=== PATIENT | female | born 1980 | race Caucasian/White ===

== ENCOUNTER 2024-03-18 09:43 | Inpatient (IN) | payer OTHER ==
[~2024-03-18] VITALS: Ht 167.6 cm; Wt 89.8 kg
[2024-03-18 10:09] VITALS: BP_SYST 145; PULSE 90; RESP 18; TEMP 97.9; O2SAT 98
[2024-03-18] MEDS: DIPHTH,PERTUSS(ACELL),TET VAC 0.5 ML VIAL (Tdap) I.M. ONE (10:45)
[2024-03-18 11:07] LABS: BASOPHILS # (AUTO) 0.1 K/uL (0.0-0.2); EOSINOPHILS # (AUTO) 0.1 K/uL (0.0-0.4); EOSINOPHILS % (AUTO) 0.6 % (0.0-4.0); HEMATOCRIT 38.4 % (36-48); HEMOGLOBIN 12.5 g/dL (12.0-16.0); LYMPHOCYTES # (AUTO) 2.2 K/uL (1.0-5.5); MEAN CORPUSCULAR HEMOGLOBIN 24 pg (27-31); MEAN CORPUSCULAR HGB CONC 32 % (32-36); MEAN CORPUSCULAR VOLUME 75 fL (79.0-98.0); MONOCYTES # (AUTO) 0.8 K/uL (0.0-1.0); MONOCYTES % (AUTO) 6.7 % (1.7-9.3); NEUTROPHILS # (AUTO) 8.5 K/uL (1.8-7.7); NEUTROPHILS % (AUTO) 72.7 % (40.0-70.0); PLATELET COUNT (AUTO) 350 K/uL (130-430); RED BLOOD CELL COUNT(AUTO) 5.12 MIL/uL (4.2-6.2); RED CELL DISTRIBUTION WIDTH 19.4 % (9.0-15.0); WHITE BLOOD COUNT (AUTO) 11.7 K/uL (4.8-10.8)
[2024-03-18 11:20] LABS: CALCIUM 8.8 mg/dL (8.4-11.0); CREATININE 0.81 mg/dL (0.55-1.30)
[2024-03-18] MEDS: NACL 0.9% 2,000 ML IV ONE (11:26)
[2024-03-18 11:35] LABS: POTASSIUM 3.9 mmol/L (3.5-5.1)
[2024-03-18] MEDS ORDERED: PIPERACILLIN/TAZOBACTAM 3.375 GM/VIAL (ZOSYN) IV ONE (11:36)
[2024-03-18] MEDS: PIPERACILLIN/TAZO 3.375 GM in NS 50 ML IV ONE (11:37)
[2024-03-18 12:15] LABS: BLOOD, URINE 3+ (NEGATIVE); COLOR,URINE YELLOW (YELLOW); GLUCOSE,URINE 3+ (NEGATIVE); KETONES,URINE 3+ (NEGATIVE); LEUKOCYTE ESTERASE ,URINE NEGATIVE (NEGATIVE); NITRITE, URINE NEGATIVE (NEGATIVE); PROTEIN URINE TRACE (NEGATIVE)
[2024-03-18 12:23] LABS: CLARITY/URINE HAZY (CLEAR)
[2024-03-18 12:31] LABS: BILIRUBIN,URINE NEGATIVE (NEGATIVE); RBC,URINE >100 /HPF (0-3)
[2024-03-18 12:32] LABS: BACTERIA,URINE MODERATE /HPF (None Seen); MUCUS,URINE 1+ /LPF (None Seen)
[2024-03-18] MEDS ORDERED: 0.45% NACL 1,000 ML IV ONE (14:15)
[2024-03-18 21:14] VITALS: BP_SYST 135; PULSE 102; RESP 18; O2SAT 97
[2024-03-18 21:15] VITALS: BP_SYST 135; PULSE 102; RESP 18
[2024-03-18 21:26] VITALS: O2SAT 98
[2024-03-18] MEDS: HYDROcodone/ACETAMIN 5-325 MG TAB (NORCO/ VICODIN) PO PRN (23:18)
[2024-03-19 00:30] VITALS: BP_SYST 127; PULSE 98; RESP 18; TEMP 97.8; O2SAT 98
[2024-03-19] MEDS: PIPERACILLIN/TAZO 3.375 GM in NS 50 ML IV ONE (00:45)
[2024-03-19] MEDS: VANCOMYCIN HCL 1,000 MG in NS 250 ML IV SCH (01:41)
[2024-03-19] MEDS: PIPERACILLIN/TAZOBACTAM 3.375 GM/VIAL (ZOSYN) IV ONE (01:43)
[2024-03-19] MEDS: VANCOMYCIN HCL 1000 MG/VIAL IV ONE (01:45)
[2024-03-19 06:00] VITALS: BP_SYST 120; PULSE 96; RESP 18; TEMP 97.5; O2SAT 98
[2024-03-19 08:09] LABS: BASOPHILS % (AUTO) 0.4 % (0.0-2.0); EOSINOPHILS # (AUTO) 0.2 K/uL (0.0-0.4); HEMATOCRIT 34.5 % (36-48); HEMOGLOBIN 11.1 g/dL (12.0-16.0); LYMPHOCYTES # (AUTO) 2.1 K/uL (1.0-5.5); LYMPHOCYTES % (AUTO) 22.8 % (20.5-51.5); MEAN CORPUSCULAR HEMOGLOBIN 24 pg (27-31); MEAN CORPUSCULAR HGB CONC 32 % (32-36); MEAN CORPUSCULAR VOLUME 75 fL (79.0-98.0); MONOCYTES # (AUTO) 0.7 K/uL (0.0-1.0); MONOCYTES % (AUTO) 8.1 % (1.7-9.3); NEUTROPHILS % (AUTO) 66.7 % (40.0-70.0); PLATELET COUNT (AUTO) 344 K/uL (130-430); RED BLOOD CELL COUNT(AUTO) 4.61 MIL/uL (4.2-6.2); RED CELL DISTRIBUTION WIDTH 19.2 % (9.0-15.0); WHITE BLOOD COUNT (AUTO) 9.1 K/uL (4.8-10.8)
[2024-03-19 08:25] LABS: CREATININE 0.52 mg/dL (0.55-1.30); POTASSIUM 3.6 mmol/L (3.5-5.1)
[2024-03-19 10:00] VITALS: O2SAT 96
[2024-03-19 12:05] VITALS: BP_SYST 122; PULSE 100; RESP 17; TEMP 97.7; O2SAT 98
[2024-03-19] MEDS: PIPERACILLIN/TAZO 4.5 GM in D5W 100 ML IV SCH (15:09)
[2024-03-19 18:22] VITALS: BP_SYST 125; PULSE 104; RESP 16; TEMP 97.3; O2SAT 98
[2024-03-19 19:00] VITALS: BP_SYST 134; PULSE 100; RESP 18; TEMP 97; O2SAT 97; O2SAT 98
[2024-03-20] VITALS (7 sets, daily range): BP systolic 113–140; PULSE 95–105; RESP 15–20; TEMP 97.1–98.1; O2SAT 96–98
[2024-03-20 06:08] LABS: BASOPHILS # (AUTO) 0.1 K/uL (0.0-0.2); BASOPHILS % (AUTO) 0.7 % (0.0-2.0); EOSINOPHILS # (AUTO) 0.2 K/uL (0.0-0.4); EOSINOPHILS % (AUTO) 2.2 % (0.0-4.0); HEMATOCRIT 34.5 % (36-48); HEMOGLOBIN 11.2 g/dL (12.0-16.0); LYMPHOCYTES # (AUTO) 3.4 K/uL (1.0-5.5); LYMPHOCYTES % (AUTO) 36.9 % (20.5-51.5); MEAN CORPUSCULAR HEMOGLOBIN 24 pg (27-31); MEAN CORPUSCULAR HGB CONC 33 % (32-36); MEAN CORPUSCULAR VOLUME 75 fL (79.0-98.0); MONOCYTES # (AUTO) 0.9 K/uL (0.0-1.0); MONOCYTES % (AUTO) 9.7 % (1.7-9.3); NEUTROPHILS # (AUTO) 4.7 K/uL (1.8-7.7); NEUTROPHILS % (AUTO) 50.5 % (40.0-70.0); PLATELET COUNT (AUTO) 378 K/uL (130-430); RED BLOOD CELL COUNT(AUTO) 4.61 MIL/uL (4.2-6.2); RED CELL DISTRIBUTION WIDTH 18.7 % (9.0-15.0); WHITE BLOOD COUNT (AUTO) 9.3 K/uL (4.8-10.8)
[2024-03-20 06:29] LABS: CALCIUM 8.4 mg/dL (8.4-11.0); CREATININE 0.54 mg/dL (0.55-1.30); POTASSIUM 3.6 mmol/L (3.5-5.1)
[2024-03-20] MEDS ORDERED: L.RH1CAP PO (11:22)
[2024-03-20] MEDS ORDERED: AMOX-423 PO (11:22)
[2024-03-20] MEDS ORDERED: DOXY100C5 PO (11:22)
[2024-03-21 08:00] VITALS: BP_SYST 142; PULSE 110; RESP 16; TEMP 98.8; O2SAT 98
[2024-03-21] MEDS ORDERED: BUPIVACAINE /PF 0.5% 30 ML VIAL ONE (08:20)
[2024-03-21] MEDS ORDERED: NS IRRIG SOLN 1000 ML IR ONE (08:20)
[2024-03-21] MEDS ORDERED: WATER FOR IRRIGATION,STERILE 1,000 ML IRRIG.SOLN IR ONE (08:20)
[2024-03-21] MEDS ORDERED: SEVOFLURANE 15 MIN GAS INH ONE (08:20)
[2024-03-21] MEDS ORDERED: KETOROLAC TROMETHAMINE 30 MG VIAL ONE (08:20)
[2024-03-21] MEDS ORDERED: LR 1,000 ML IV.SOLN IV ONE (08:20)
[2024-03-21] MEDS ORDERED: fentaNYL CITRATE/PF 100 MCG/2 ML AMP ONE (08:20)
[2024-03-21] MEDS ORDERED: PROPOFOL 200MG/ 20ML VIAL (DIPRIVAN) IV ONE (08:20)
[2024-03-21] MEDS ORDERED: ONDANSETRON HCL 4 MG/2 ML VIAL ONE (08:20)
[2024-03-21] MEDS ORDERED: METOCLOPRAMIDE HCL 10 MG/2 ML VIAL ONE (08:20)
[2024-03-21] MEDS ORDERED: MIDAZOLAM HCL 2 MG/2 ML VIAL (VERSED) ONE (08:20)
[2024-03-21 09:00] VITALS: O2SAT 98
[2024-03-21] MEDS ORDERED: MORPHINE 4 MG INJ. 4 MG/ML VIAL IVP PRN (09:15)
[2024-03-21] MEDS: LR 1,000 ML IV SCH (09:30)
[2024-03-21] MEDS ORDERED: ONDANSETRON HCL 4 MG/2 ML VIAL IVP PRN (09:30)
[2024-03-21] MEDS ORDERED: HYDROmorphone 2 MG/ML VIAL IVP PRN (09:30)
[2024-03-21] MEDS ORDERED: HYDROmorphone 1 MG/ML INJ. CARTRIDGE IVP PRN (09:30)
[2024-03-21] MEDS ORDERED: KETOROLAC TROMETHAMINE 30 MG VIAL IVP PRN (09:30)
[2024-03-21 20:00] VITALS: BP_SYST 117; BP_SYST 134; PULSE 76; PULSE 98; RESP 18; RESP 20; TEMP 97.7; TEMP 98.8; O2SAT 96; O2SAT 98
[2024-03-21 21:01] VITALS: O2SAT 98
[2024-03-22] VITALS (7 sets, daily range): BP systolic 128–149; PULSE 50–96; RESP 15–20; TEMP 96.4–98.8; O2SAT 96–99
[2024-03-22 06:01] LABS: BASOPHILS # (AUTO) 0.1 K/uL (0.0-0.2); BASOPHILS % (AUTO) 0.8 % (0.0-2.0); EOSINOPHILS # (AUTO) 0.2 K/uL (0.0-0.4); EOSINOPHILS % (AUTO) 2.6 % (0.0-4.0); HEMATOCRIT 34.1 % (36-48); HEMOGLOBIN 11.3 g/dL (12.0-16.0); LYMPHOCYTES # (AUTO) 2.3 K/uL (1.0-5.5); LYMPHOCYTES % (AUTO) 35.3 % (20.5-51.5); MEAN CORPUSCULAR HEMOGLOBIN 25 pg (27-31); MEAN CORPUSCULAR HGB CONC 33 % (32-36); MEAN CORPUSCULAR VOLUME 74 fL (79.0-98.0); MONOCYTES # (AUTO) 0.7 K/uL (0.0-1.0); MONOCYTES % (AUTO) 10.1 % (1.7-9.3); NEUTROPHILS # (AUTO) 3.3 K/uL (1.8-7.7); NEUTROPHILS % (AUTO) 51.2 % (40.0-70.0); PLATELET COUNT (AUTO) 389 K/uL (130-430); RED BLOOD CELL COUNT(AUTO) 4.61 MIL/uL (4.2-6.2); RED CELL DISTRIBUTION WIDTH 18.8 % (9.0-15.0); WHITE BLOOD COUNT (AUTO) 6.5 K/uL (4.8-10.8)
[2024-03-22] MEDS: VANCOMYCIN HCL 1,000 MG in NS 250 ML IV SCH (16:26)
[2024-03-23 06:53] LABS: BASOPHILS % (AUTO) 0.7 % (0.0-2.0); EOSINOPHILS # (AUTO) 0.1 K/uL (0.0-0.4); EOSINOPHILS % (AUTO) 2.2 % (0.0-4.0); HEMOGLOBIN 11.3 g/dL (12.0-16.0); LYMPHOCYTES # (AUTO) 2.3 K/uL (1.0-5.5); LYMPHOCYTES % (AUTO) 36.1 % (20.5-51.5); MEAN CORPUSCULAR HEMOGLOBIN 25 pg (27-31); MEAN CORPUSCULAR HGB CONC 33 % (32-36); MEAN CORPUSCULAR VOLUME 74 fL (79.0-98.0); MONOCYTES # (AUTO) 0.9 K/uL (0.0-1.0); MONOCYTES % (AUTO) 13.2 % (1.7-9.3); NEUTROPHILS # (AUTO) 3.1 K/uL (1.8-7.7); NEUTROPHILS % (AUTO) 47.8 % (40.0-70.0); PLATELET COUNT (AUTO) 422 K/uL (130-430); RED BLOOD CELL COUNT(AUTO) 4.59 MIL/uL (4.2-6.2); RED CELL DISTRIBUTION WIDTH 18.7 % (9.0-15.0); WHITE BLOOD COUNT (AUTO) 6.5 K/uL (4.8-10.8)
[2024-03-23 07:35] LABS: CALCIUM 8.7 mg/dL (8.4-11.0); CREATININE 0.77 mg/dL (0.55-1.30); POTASSIUM 3.3 mmol/L (3.5-5.1)
[2024-03-23 07:46] VITALS: O2SAT 98
[2024-03-23 08:33] VITALS: BP_SYST 123; PULSE 97; RESP 17; TEMP 98.1; O2SAT 95
[2024-03-23] MEDS: POTASSIUM CHLORIDE 20 MEQ TABLET.ER PO ONE (12:15)
[2024-03-23 12:21] VITALS: BP_SYST 123; PULSE 97; RESP 17; TEMP 98.1; O2SAT 96
[2024-03-23 12:32] VITALS: BP_SYST 143; PULSE 75; RESP 17; TEMP 97.5; O2SAT 99
[2024-03-23 16:14] VITALS: BP_SYST 149; PULSE 92; RESP 19; TEMP 97.5; O2SAT 98
== END 2024-03-23 15:34 | disposition home health service (06) | DRG 464 ==
LOC: SED 09:43 → SMU 14:19
PROVIDERS: ADMIT Specialist; ATTEND Specialist
PROC: 0JBB0ZZ Excision of Perineum Subcutaneous Tissue and Fascia, Open Approach (ICD-10-PCS; principal; 2024-03-21 08:30)
DX: M72.6 Necrotizing fasciitis (principal); L02.215 Cutaneous abscess of perineum; L03.315 Cellulitis of perineum; E11.9 Type 2 diabetes mellitus without complications; Z79.899 Other long term (current) drug therapy
CPT/HCPCS: 36415; 72193; 80048; 80202; 81000; 81001; 81015; 83037; 83605; 84702; 85025; 85610; 85730; 87040; 87070; 87075; 87081; 87086; 88304; 88305; 90715; 96365; 99285; J1885; J2250; J2405; J2543; J2704; J2765; J3010; J3370; J3490; J7030; J7040; J7050; J7060; J7120; Q9967